=== PATIENT | male | born 2000 | race Two or more races ===

== ENCOUNTER 2020-06-24 13:13 | Emergency (ER) | payer SELFPAY ==
[2020-06-24] MEDS ORDERED: Bupivacaine 0.5% 10 ML SDV INJECT ONE (13:31)
--- NOTE | 2020-06-24 14:50 | EDM.PDOC ---
ED HPI GENERAL MEDICAL PROBLEM - General Chief Complaint: Laceration Stated Complaint: LEFT HAND INJURY Time Seen by Provider: 06/24/20 13:16 Source of Information: Reports: Patient History Limitations: Reports: No Limitations - History of Present Illness INITIAL COMMENTS - FREE TEXT/NARRATIVE: This is a very pleasant 20-year-old male with no pertinent past medical history presenting with injuries to his left hand. About 1 hour ago, the patient was moving some furniture when he accidentally cut his left hand on a sharp edge of a doorway. He arrives to the emergency department with gauze applied to some bleeding wounds on the dorsum of the left hand. He is unsure of his tetanus immunization status. No report of any broken glass or any metal shards. No other complaints. Past medical history: Reviewed, no additional pertinent history. Surgical history: Reviewed in system, no additional pertinent history. Social history: Reviewed in system, no additional pertinent history. Family history: Reviewed in system, no additional pertinent history. PHYSICAL EXAM Vital signs reviewed. Nursing notes reviewed. Constitutional: Awake, alert, non-distressed. Head: Normocephalic, atraumatic. Eyes: EOMI, conjunctiva normal, no discharge, no scleral icterus. Ears, Nose, Throat: External ears and nose normal, moist oral mucosa. Cardiovascular: 2+ left radial pulse, capillary refill less than 2 seconds. Pulmonary: normal work of breathing, no accessory muscle use. Abdomen/GI: Soft, nontender, nondistended, no guarding or rigidity, no masses. Musculoskeletal: No deformities. Integumentary: Appropriate color for ethnicity, warm, dry, no pallor or jaundice, no rash. There are 2 linear lacerations to the dorsal surface of the left hand. One laceration is about 1.2 cm long, the other is 1 cm long, no gross contamination or foreign bodies are noted. Neurologic: Alert, answering questions appropriately, normal speech, no facial droop, moving all extremities well. Sensation intact to light touch to the left index finger. Psychiatric: Appropriate mood and affect, normal thought process. This patient was seen and evaluated during the 2019 SARS-CoV-2 novel coronavirus pandemic period. Community viral transmission is ongoing at time of this encounter and the emergency department is operating under pandemic response procedures. Left Hand Pain Score (Numeric/FACES): 3 - Related Data Allergies Allergy/AdvReac Type Severity Reaction Status Date / Time No Known Allergies Allergy Verified 06/24/20 14:09 Home Meds: Home Meds . [No Known Home Meds] 06/24/20 [History] Past Medical History - Past Health History Medical/Surgical History: Denies Medical/Surgical History - Infectious Disease History Infectious Disease History: Reports: Chicken Pox Social & Family History - Tobacco Use Tobacco Use Status *Q: Never Tobacco User - Caffeine Use Caffeine Use: Reports: None - Recreational Drug Use Recreational Drug Use: No ED ROS GENERAL - Review of Systems Review Of Systems: See Below ED EXAM, SKIN/RASH Exam: See Below ED SKIN PROCEDURES - Laceration/Wound Repair Left Posterior Hand Appearance: Superficial Distal NVT: Neuro & Vascular Intact Anesthetic Type: Local Local Anesthesia - Bupivicaine (Marcaine): 0.5% Plain Local Anesthetic Volume: 2cc Skin Prep: Saline Exploration/Debridement/Repair: Wound Explored, In a Bloodless Field, No Foreign Material Found Closed with: Sutures Lac/Wound length In cm: 2.2 Suture Size: 4-0 # of Sutures: 5 Sterile Dressing Applied: Nurse Tetanus Status Addressed: Yes Complications: No Progress/Comments: 2 lacerations, one is 1.2 cm long, the other is 1 cm long, 5X 4-0 nylon sutures placed. Course - Vital Signs Text/Narrative:: Two clean appearing lacerations to the dorsal surface of the left hand. No evidence of contamination, no foreign bodies. Anesthesia administered, copiously irrigated by nurse. Laceration repair performed as detailed in the procedure notes. Tetanus booster given. Stable to discharge home, return in 7 to 10 days for suture removal. Last Recorded V/S: Last Vital Signs Temp 35.9 C L 06/24/20 13:27 Pulse 86 06/24/20 13:27 Resp 18 06/24/20 13:27 BP 151/71 H 06/24/20 13:27 Pulse Ox 95 06/24/20 13:27 - Orders/Labs/Meds Meds: Medications Discontinued Medications Generic Name Dose Route Start Last Admin Trade Name Sherry PRN Reason Stop Dose Admin Bupivacaine HCl 10 ml 06/24/20 13:31 06/24/20 14:09 Sensorcaine-Mpf 0.5% INJECT 06/24/20 13:32 10 ml ONETIME ONE Administration Departure - Departure Time of Disposition: 14:49 Disposition: Home, Self-Care 01 Condition: Good Clinical Impression: Laceration of left hand Qualifiers: Encounter type: initial encounter Foreign body presence: without foreign body Qualified Code(s): S61.412A - Laceration without foreign body of left hand, initial encounter - Discharge Information *PRESCRIPTION DRUG MONITORING PROGRAM REVIEWED*: Not Applicable *COPY OF PRESCRIPTION DRUG MONITORING REPORT IN PATIENT VICTOR M: Not Applicable Instructions: Laceration Care, Adult, Sutures, [place], or Adhesive Wound Closure Referrals: Emergency Room [Provider Group] - 1 Week (Return to the ER in 7 to 10 days for suture removal.) Forms: ED Department Discharge Additional Instructions: You were seen in the emergency department for lacerations to your left hand. You had sutures placed which will need to be removed in 7 to 10 days. Monitor for swelling, warmth, redness, or fever. These are signs of infection and you should come back to the ER right away if these symptoms develop. Please return the emergency department immediately if your symptoms worsen or if you feel worse. Thank you for choosing the [facility] emergency department in [place] for your medical needs today. It was a pleasure caring for you. The following information is given to patients seen in the emergency department who are being discharged. This information is to outline your options for follow-up care. We provide all patients seen in our emergency department with a follow-up referral. The need for follow-up, as well as the timing and circumstances, are variable depending upon the specifics of your emergency department visit. If you don't have a primary care physician on staff, we will provide you with a referral. We always advise you to contact your personal physician following an emergency department visit to inform them of the circumstance of the visit and for follow-up with them and/or the need for any referrals to a consulting specialist. The emergency department will also refer you to a specialist when appropriate. This referral assures that you have the opportunity for follow-up care with a specialist. All of these measure are taken in an effort to provide you with optimal care, which includes your follow-up. Under all circumstances we always encourage you to contact your private physician who remains a resource for coordinating your care. When calling for follow-up care, please make the office aware that this follow-up is from your recent emergency room visit. If for any reason you are refused follow-up, please contact the Emergency Department at and asked to speak to the emergency department charge nurse. If you do not have a primary care physician that is caring for you, you can contact these clinics below to set up an appointment to establish care: [facility] - [facility] [address] [place] [id number] [facility] [address] [place] [id number] Sepsis Event Note (ED) - Evaluation Sepsis Screening Result: No Definite Risk - Focused Exam Vital Signs: Vital Signs Temp Pulse Resp BP Pulse Ox 06/24/20 13:27 35.9 C L 86 18 151/71 H 95
== END 2020-06-24 15:08 | disposition home or self-care (01) ==
LOC: MW.ED 13:13
DX: S61.412A Laceration without foreign body of left hand, initial encounter (principal); W26.8XXA Contact with other sharp object(s), not elsewhere classified, initial encounter
CPT/HCPCS: 12001; 99282; J3490